=== PATIENT | male | born 1990 | race American Indian/Alaskan Native ===

== ENCOUNTER 2017-12-19 09:33 | Emergency (ER) | payer BC, OTHER ==
--- NOTE | 2017-12-19 12:59 | Emergency Department Report ---
ED Neck Pain HPI Chief Complaint: Neck Pain/Injury Stated Complaint: NECK/BACK PAIN Time Seen by Provider: 12/19/17 11:57 Duration: 1 month Neck Pain Location: Posterior Neck Severity: moderate Mechanism: Unsure Symptoms: Yes Pain with Movement (turning neck right or left), No Radiation to Left Upper Ext, No Radiation to Right Upper Ext, No Numbness, No Weakness, No Previous History Other History: This is a 27 y.o. male that presents with midline neck pain for 1 month. Patient denies recent injury or fall. He works out a lot at the gym and admits to possibly lifting weights incorrectly. States pain is intermittent and usually resolves with taking aleve pain medication. States pain is worse with awaking and improves as the day progress. States pain increased yesterday and unresolved with NSAID's. Currently pain is 8/10 on scale and remains in midline lower neck. Denies radiating pain, numbness, tingling, swelling, and redness. ED Review of Systems ROS: Stated complaint: NECK/BACK PAIN Other details as noted in HPI Constitutional: denies: chills, fever, malaise, weakness Respiratory: denies: cough, orthopnea, shortness of breath, SOB with exertion, wheezing Cardiovascular: denies: chest pain, palpitations, dyspnea on exertion, edema Gastrointestinal: denies: abdominal pain, nausea, vomiting, diarrhea, hematochezia Musculoskeletal: arthralgia (midline lower neck pain). denies: back pain, joint swelling, myalgia Skin: denies: rash, lesions Neurological: denies: headache, weakness, paresthesias Psychiatric: denies: anxiety, depression ED Past Medical Hx - Past Medical History Hx Asthma: Yes - Social History Smoking Status: Current Every Day Smoker Substance Use Type: Alcohol, Marijuana - Medications Home Medications: Home Medications Medication Instructions Recorded Confirmed Last Taken Type Cyclobenzaprine [Flexeril] 1 tab PO Q8H PRN #21 tablet 06/14/13 Unknown Rx traMADol [Ultram 50 MG tab] 1 tab PO Q6HR PRN #16 tablet 06/14/13 Unknown Rx Ibuprofen [Motrin] 600 mg PO Q8H PRN #60 tablet 01/13/15 Unknown Rx traMADol [Ultram] 50 mg PO Q6HR PRN #14 tablet 01/13/15 Unknown Rx Indomethacin 50 mg PO Q8H PRN #20 capsule 12/19/17 Unknown Rx Neck Pain Exam - Exam General: Vital signs noted. No distress. Alert and acting appropriately. HEENT: No Facial Pain, No Scalp Tenderness, No Contusion, No Abrasion, No Laceration Neck Pain: Yes Midline Tenderness, Yes Pain with Rotation Right, Yes Pain with Rotation Left, No Right Paraspinal Tenderness, No Left Paraspinal Tenderness, No Right Trapezius Tenderness, No Left Trapezius Tenderness, No Pain with Extension, No Pain with Flexion, No pain with R Lateral Flexion, No Pain with L Lateral Flexion Chest: Yes Clear Lung Sounds, No Pain with Respirations Heart: Yes Regular, No Murmur Back: No Thoracic Tenderness, No Lumbar Tenderness Neuro: Yes Normal Reflexes, No Numbness, No Weakness, No Radicular Deficits ED Course Vital Signs 12/19/17 10:30 Temperature 98 F Pulse Rate 50 L Respiratory 18 Rate Blood Pressure 120/70 O2 Sat by Pulse 100 Oximetry ED Medical Decision Making - Radiology Data Radiology results: report reviewed XR of neck: Early degenerative disc disease at C4-5. No acute process. - Medical Decision Making This is a 27 y.o. male presents with intermittent neck pain for 1 month. Patient was examined by me. Physical findings susceptible of muscle strain of trapezius muscles. Xray of cervical obtained and early degenerative disc disease at C4-5. No acute process. Patient informed of results. Plan discussed with patient to discharge home and treat outpatient. He agrees with ER plan. Patient discharged home in stable condition. Start indomethician 50 mg po TID. Follow up with PCP. Critical care attestation.: If time is entered above; I have spent that time in minutes in the direct care of this critically ill patient, excluding procedure time. 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 Take pain medication as needed for pain. Don't drive or operate heavy machinery while taking muscle relaxers because they may cause drowsiness. Follow up with Primary Care Provider in 2-3 days. Prescriptions: Indomethacin 50 mg PO Q8H PRN #20 capsule PRN Reason: Pain Referrals: [facility] [Outside] - 3-5 Days [facility] [Outside] - 3-5 Days [facility] [Outside] - 3-5 Days Forms: Work/School Release Form(ED) Time of Disposition: 14:05 Print Language: CHADIAN
--- NOTE | 2017-12-19 13:53 | XRay Report ---
CERVICAL SPINE, 3 views: History: Neck pain. Findings: The vertebral bodies, disk spaces, posterior elements and prevertebral soft tissues are intact. The dens is intact. No acute fracture or malalignment is identified. Early degenerative disc disease is identified at C4-5. The remaining levels are within normal limits. Impression: Early degenerative disc disease at C4-5. No acute process.
[2017-12-19 14:22] VITALS: BP 128/85
== END 2017-12-19 14:23 | disposition home or self-care (01) ==
LOC: ED 09:33
DX: M47.22 Other spondylosis with radiculopathy, cervical region (principal); M54.2 Cervicalgia; J45.909 Unspecified asthma, uncomplicated; F17.200 Nicotine dependence, unspecified, uncomplicated; F12.10 Cannabis abuse, uncomplicated
CPT/HCPCS: 72040